=== PATIENT | female | born 1975 | race Caucasian/White ===

== ENCOUNTER 2025-05-22 17:48 | Emergency (ER) | payer OTHER, SELFPAY ==
--- OUTSIDE RECORDS SUMMARY | 2025-05-08 13:00 | XMS_ITS ---
Author Organization [facility] Address [address] [place] [address] Phone [phone] Care Team Providers Care Link Cutter Name Role Phone Bret Camara Primary Care Provider [phone] Kirsten Joseph APRN [phone] Allergies Allergen (clinical drug ingredient) Drug/Non Drug Allergy documented on EMR Reaction Allergy Type Onset Date Status codeine Codeine anaphylaxis Drug Allergy Activ e ketorolac Ketorolac anaphylaxis Drug Allergy Activ e REASON FOR VISIT [facility] Naltrxone/Vivitrol Medications Medication SIG (Take, Route, Frequency, Duration) Notes Start Date End Date Diagnosis (ICD Code) Status traZODone HCl 50 MG Tablet 1-2 tablets at bedtime as needed Orally Once a day; Duration: 7 days pt on unit-than ks! 5 Insomnia (ICD_10 - G47.00) Active ARIPiprazole 5 MG Tablet 1 tablet Orally Once a day; Duration: 7 days pt on unit-than ks! 5 Mood disorder (ICD_10 - F39) Active Sertraline HCl 25 MG Tablet 1 tablet Orally Once a day; Duration: 7 days pt on unit-than ks! 5 Mood disorder (ICD_10 - F39) Active Prazosin HCl 1 MG Capsule 1 capsule at bedtime Orally Once a day; Duration: 7 days pt on unit-than ks! 5 PTSD (post-traumatic stress disorder) (ICD_10 - F43.10) Active Baclofen 5 MG Tablet 1 tablet as needed at night Orally Once a day; Duration: 30 days 5 Neck pain on right side (ICD_10 - M54.2) Active Ondansetron HCl 4 MG Tablet 1 tablet Orally every 8 hours; Duration: 14 days 5 Nausea (ICD_10 - R11.0) Active Albuterol Sulfate HFA 108 (90 Base) MCG/ACT Aerosol Solution 1 puff as needed Inhalation every 4 hrs 5 COPD (chronic obstructive pulmonary disease) (ICD_10 - J44.9) Active Topiramate 25 MG Tablet 1 tablet Orally Once a day 5 Migraine (ICD_10 - G43.909) Active Docusate Sodium 100 MG Capsule 1 capsule as needed Orally Once a day; Duration: 30 days 5 Constipation (ICD_10 - K59.00) Active Triamcinolone Acetonide 0.1 % Lotion 1 application Externally Twice a day 5 Eczema of both hands (ICD_10 - L30.9) Active hydrOXYzine Pamoate 25 MG Capsule 1-2 capsules Orally every 4 hours as needed for anxiety, agitation, or inability to sleep. Do not give within 4 hours of diphenhydramine.; Duration: 30 days 5 Adult general medical examination (ICD_10 - Z00.00) Active Nicotine 14 MG/24HR Patch 24 Hour 1 patch to skin Transdermal Once a day, removing at bedtime; Duration: 14 days 5 Adult general medical examination (ICD_10 - Z00.00) Active Nicotine Polacrilex 4 MG Lozenge 1 lozenge as needed for nicotine cravings Mouth/Throat Up to once per hour (maximum of 15 lozenges per day); Duration: 7 days 5 Adult general medical examination (ICD_10 - Z00.00) Active Melatonin 5 MG Tablet 1 tablet at bedtime as needed Orally Once a day; Duration: 30 days 5 Adult general medical examination (ICD_10 - Z00.00) Active Multi Vitamin - Tablet 1 tablet Orally Once a day; Duration: 30 days 5 Adult general medical examination (ICD_10 - Z00.00) Active Vivitrol 380 MG Suspension Reconstituted as directed Intramuscular every 28 days; Duration: 28 days Methamphetamine use disorder, severe (ICD_10 - F15.20) Active Naltrexone HCl 50 MG Tablet 1/2 tablet Orally once; Duration: 1 days Methamphetamine use disorder, severe (ICD_10 - F15.20) Active Social History Sex Observation Social History Observation Description Sex Observation Female Vital Signs Vital Sign Value Appt Date Weight 223.4 lbs 05/08/2025 Height 68 in 05/08/2025 BMI 33.96 kg/m2 05/08/2025 Blood pressure systolic 120 mm Hg 05/08/20 Blood pressure diastolic 74 mm Hg 025 Heart Rate 81 /min 05/08/2025 Oximetry 98 % 05/08/2025 Respiratory Rate 16 /min 05/08/2025 Encounters Date Time Type Facility Location Provider Diagnosis 01:00 PM Office Visit [address] [place] [address] Kirsten Joseph Methamphetamine use disorder, severe F15.20 Assessments Encounter Date Diagnosis (ICD Code) Assessment Notes Treat ment Notes Section Notes 05/08/2025 Methamphetamine use disorder, severe (ICD-10 - F15.20) 05/08/2025 Other 05/08/25 01:00 PM, Sarwat Louis RN > Per Carmelo Joseph APRN's orders, supervised as pt. self-administered Naltrexone 25mg po. Instructed pt. on Naltrexone and Vivitrol per [employer] module handout. Instructed pt. on adverse side effects to report and common side effects. Gave pt. Vivitrol ID bracelet, necklace, and wallet card and explained what/why it is used. Pt. verbalized understanding of all of the above. Will monitor. 05/08/25 01:15 PM, Sarwat Louis RN > Pt. denies any adverse side effects from the Naltrexone at this time. Will continue to monitor. 05/08/25 01:30 PM, Sarwat Louis RN> Pt. continues to deny any adverse side effects to the Naltrexone at this time. Reported this to Carmelo Joseph APRN. Per orders, okay to administer IM Vivitrol. 05/08/25 01:45 PM, Sarwat Louis RN> Administered Vivitrol 380mg IM into Lt. gluteus. Pt. tolerated well. No questions/concerns at this time. Pt. given a reminder with walk-in clinic hours, phone numbers, and when pt.'s next Vivitrol is due. Pt. verbalized understanding. 05/08/25 02:00 PM, NURSE > Pt. denies any adverse side effects from Vivitrol injection given. Per Carmelo Joseph APRN pt. discharged back to [facility]. Plan Of Treatment Treatment Notes Assessment Notes Other 05/08/25 01:00 PM, Sarwat Louis RN > Per Carmelo Joseph APRN's orders, supervised as pt. self-administered Naltrexone 25mg po. Instructed pt. on Naltrexone and Vivitrol per [employer] module handout. Instructed pt. on adverse side effects to report and common side effects. Gave pt. Vivitrol ID bracelet, necklace, and wallet card and explained what/why it is used. Pt. verbalized understanding of all of the above. Will monitor. 05/08/25 01:15 PM, Sarwat Louis RN > Pt. denies any adverse side effects from the Naltrexone at this time. Will continue to monitor. 05/08/25 01:30 PM, Sarwat Louis RN> Pt. continues to deny any adverse side effects to the Naltrexone at this time. Reported this to Carmelo Joseph APRN. Per orders, carsonay to administer IM Vivitrol. 05/08/25 01:45 PM, Sarwat Louis RN> Administered Vivitrol 380mg IM into Lt. gluteus. Pt. tolerated well. No questions/concerns at this time. Pt. given a reminder with walk-in clinic hours, phone numbers, and when pt.'s next Vivitrol is due. Pt. verbalized understanding. 05/08/25 02:00 PM, NURSE > Pt. denies any adverse side effects from Vivitrol injection given. Per Carmelo Joseph APRN pt. discharged back to [facility]. Next Appt Details Provider Name:Destinee archer, 05/28/2025 10:00:00 AM, [address] [place] [address], [id number], Medications Administered Medication Instructions Date of Administration Dosage Diagnosis (ICD Code) Notes Vivitrol 05/08/2025 380 mg HeribertoTrudy felipe Pickard 05/08/2025 01:45 PM WASTE SPECIALIST >Given IM Lt Gluteus, tolerated well. [facility]# [id number]. Medical (General) History Medical History History ICD Code PTSD anxiety depression Surgical History Surgery Date(Month/Year) hysterectomy at age 23 Hospitalization History Reason Date(Month/Year) [facility], [facility] last month 03/2025 [facility] for detox 04/2025 Progress Notes * IRVINJEFFLeslieaDOB: 6 (49 yo F)Acc No.[id number]:05/08/2025 UNLOCKED PROGRESS NOTE Progress Note Patient: Nara LIM Provider: Polly Joseph, MSN, INVENTORY CONTROL SUPERVISOR, STATEMENT DISTRIBUTION CLERK-C :1975 A ge:49 Y S ex:Female Date:05/08/2025 Address:[address] [place] [address] Pcp:Bret Camara Check In:12:51 PM CSTCheck O ut:02:04 PM WASTE SPECIALIST Subjective: * Chief Complaints: * 1 . [facility] Naltrxone/Vivitrol. * Screening: * * Medical History: P TSD, Anxiety, Depression. * Surgical History: h ysterectomy at age 23 . * Hospitalization/Major Diagno stic Procedure: [facility] for detox 04/2025, [facility], end of last month 03/2025. * Medications: T aking Naltrexone HCl 50 MG Tablet 1/2 tablet Orally once , Taking Vivitrol 380 MG Suspension Reconstituted as directed Intramuscular every 28 days , Taking Nicotine Polacrilex 4 MG Lozenge 1 lozenge as needed for nicotine cravings Mouth/Throat Up to once per hour (maximum of 15 lozenges per day) , Taking Multi Vitamin - Tablet 1 tablet Orally Once a day , Taking Melatonin 5 MG Tablet 1 tablet at bedtime as needed Orally Once a day , Taking Nicotine 14 MG/24HR Patch 24 Hour 1 patch to skin Transdermal Once a day, removing at bedtime , Taking hydrOXYzine Pamoate 25 MG Capsule 1-2 capsules Orally every 4 hours as needed for anxiety, agitation, or inability to sleep. Do not give within 4 hours of diphenhydramine. , Taking Albuterol Sulfate HFA 108 (90 Base) MCG/ACT Aerosol Solution 1 puff as needed Inhalation every 4 hrs , Taking Ondansetron HCl 4 MG Tablet 1 tablet Orally every 8 hours , Taking Docusate Sodium 100 MG Capsule 1 capsule as needed Orally Once a day , Taking Topiramate 25 MG Tablet 1 tablet Orally Once a day , Taking Triamcinolone Acetonide 0.1 % Lotion 1 application Externally Twice a day , Taking Baclofen 5 MG Tablet 1 tablet as needed at night Orally Once a day , Taking Prazosin HCl 1 MG Capsule 1 capsule at bedtime Orally Once a day , Notes to Pharmacist: pt on unit-thanks!, Taking Sertraline HCl 25 MG Tablet 1 tablet Orally Once a day , Notes to Pharmacist: pt on unit-thanks!, Taking ARIPiprazole 5 MG Tablet 1 tablet Orally Once a day , Notes to Pharmacist: pt on unit-thanks!, Taking traZODone HCl 50 MG Tablet 1-2 tablets at bedtime as needed Orally Once a day , Notes to Pharmacist: pt on unit-thanks! * Allergies: K etorolac: anaphylaxis, Codeine: anaphylaxis. Objective: * Vitals: I patricia: cinthya, Wt:223.4, Ht: 68, BMI:33.96, BP:120/74, HR:81, Oxygen sat %:98, RR:16. Assessment: * Assessment: 1. M ethamphetamine use disorder, severe - F15.20 (Primary) Plan: * Treatment: * Therapeutic Injections: Vivitrol : 380 mg (Dose No:1) (Route: Intramuscular) given by CINTHYA Mccracken on left gluteus (Methamphetamine use disorder, severe) * Procedure Codes: [id number] THER/PROPH/DIAG INJ, SC/IM * * Electronic signature of Ivonne Joseph APRN, [id number] on 05/22/2025 at 10:01 PM WASTE SPECIALIST Sign off status: Pending * Provider: Polly Joseph, MSN, INVENTORY CONTROL SUPERVISOR, STATEMENT DISTRIBUTION CLERK-C Date: 07/09/2024 Generated for Ashok wheat/Barry/Lorenzasmcait on: 07/23/2024 10:01 PM WASTE SPECIALIST
--- NOTE | ~2025-05-22 | CT_ITS ---
EXAMINATION: CT abdomen pelvis w con DATE: 05/22/2025 19:39 INDICATION: Abdominal pain. Concern for cholecystitis. TECHNIQUE: Computed tomography (CT) of the abdomen and pelvis was performed with intravenous contrast. The dose-length product was 1265.54 mGy-cm. Automated exposure control and iterative reconstruction technique were employed. COMPARISON: None. FINDINGS: Lung bases unremarkable. Heart size normal. Scattered areas of nodular pleural thickening with small effusions. The liver, spleen, pancreas, adrenal glands and right kidney are unremarkable. There is a 2.2 cm intermediate density left renal mass measuring 59 Hounsfield units. Small hiatal hernia. Nonobstructive bowel gas pattern. No abnormal pelvic masses or fluid collections. No free air or free fluid. Gallbladder is present. No significant vascular abnormality. No lymphadenopathy. No focal lytic or blastic lesions. IMPRESSION: 1. Nodular pleural thickening with small effusions. In the absence of recent infection or inflammatory disease, findings are concerning for pleural malignancy including metastatic disease or mesothelioma. Correlation with prior imaging and clinical history is recommended. Consider further evaluation PET/CT scan. 2: Intermediate density left renal mass measuring 2.2 cm. Cannot exclude renal cell carcinoma. Correlation with MRI without and with contrast recommended. Reviewed, dictated and finalized at location O. ECT DRILLING ENGINEER IMPRESSION: 1. Nodular pleural thickening with small effusions. In the absence of recent in fection or inflammatory disease, findings are concerning for pleural malignancy including metastatic disease or mesothelioma. Correlation with prior imaging a nd clinical history is recommended. Consider further evaluation PET/CT scan. 2: Intermediate density left renal mass measuring 2.2 cm. Cannot exclude renal cell carcinoma. Correlation with MRI without and with contrast recommended.
[2025-05-22 17:51] VITALS: BP 113/76; PULSE 80; RESP 16; TEMP 36.8; O2SAT 99
--- NOTE | 2025-05-22 18:20 | ED_ITS ---
HPI - Abdominal Pain General Chief Complaint: Abdominal Pain Stated Complaint: UPPER ABD PAIN Time Seen by Provider: 05/22/25 17:56 History of Present Illness HPI narrative: 49-year-old female presenting with concerns for persistent abdominal pain over the last 3-4 days. Patient states the pain worsened today and was accompanied by vomiting and severe right upper quadrant abdominal pain after eating dinner. She is also reporting subjective fevers today. Denies diarrhea, chest pain/shortness breath, or urinary symptoms. Patient states her last bowel movement was normal yesterday. States that she does not have her appendix and has had a total hysterectomy but maintains her gallbladder. Related Data Allergies Allergy/AdvReac Type Severity Reaction Status Date / Time codeine Allergy Severe Swelling Verified 05/22/25 17:50 of Lip/Tongue/Throat ketorolac Allergy Severe Swelling Verified 05/22/25 17:50 of Lip/Tongue/Throat Review of Systems 2 Review of Systems: All systems reviewed & are unremarkable except as noted in HPI and below Exam 2 Narrative: GENERAL: Uncomfortable. HEAD: Normocephalic, atraumatic. EYES: PERRLA and EOMI. ENT: Nares clear, no rhinorrhea or epistaxis. Mucous membranes moist. Oropharynx without tonsillar hypertrophy exudate or other lesions. Bilateral TMs pearly cabrera non-bulging NECK: Supple. No adenopathy or masses. No carotid bruits or JVD CHEST: Clear to auscultation. No respiratory distress. No wheezes rales or rhonchi HEART: Regular rate and rhythm. No murmur heard. Normal peripheral pulses. ABDOMEN: Soft, nondistended, normal active bowel sounds. RUQ TTP. EXTREMITIES: Normal range of motion. No edema. SKIN: Warm, dry, no rash. NEURO: No focal deficits. Alert and oriented x3. PSYCH: Normal mood and affect Course Vital Signs Vital signs: Vital Signs Temperature 98.2 F 05/22/25 17:51 Pulse Rate 80 05/22/25 17:51 Respiratory Rate 16 05/22/25 17:51 Blood Pressure 113/76 05/22/25 17:51 Pulse Oximetry 99 05/22/25 17:51 Oxygen Delivery Room Air 05/22/25 17:51 Temperature 98.2 F 05/22/25 17:51 Pulse Rate 78 05/22/25 18:39 Respiratory Rate 23 H 05/22/25 18:39 Blood Pressure 145/64 H 05/22/25 18:39 Pulse Oximetry 98 05/22/25 18:39 Oxygen Delivery Room Air 05/22/25 17:51 [facility] Narrative Medical decision making narrative: 49-year-old female presenting with concerns for persistent abdominal pain over the last 3-4 days. Patient states the pain worsened today and was accompanied by vomiting and severe right upper quadrant abdominal pain after eating dinner. She is also reporting subjective fevers today. Denies diarrhea, chest pain/shortness breath, or urinary symptoms. Patient states her last bowel movement was normal yesterday. States that she does not have her appendix and has had a total hysterectomy but maintains her gallbladder. Upon my initial assessment patient appears uncomfortable but nontoxic with stable vitals. Labs are unremarkable. Advised improving hydration. Imaging demonstrates nodular pleural thickening with small effusions. In the absence of recent infection or inflammatory disease, findings are concerning for pleural malignancy including metastatic disease or mesothelioma. Correlation with prior imaging and clinical history is recommended. Consider further evaluation PET/CT scan. Intermediate density left renal mass measuring 2.2 cm. Cannot exclude renal cell carcinoma. Correlation with MRI without and with contrast recommended. Discussed these findings thoroughly with the patient and she verbalized understanding for the need for close follow-up. Administered Tylenol and Zofran which improved patient's symptoms. Differential diagnosis and treatment plan were discussed with the patient. Patient agrees with discussion and after shared medical decision making agrees with plan of care. All questions were answered to the patient's satisfaction. The patient is appropriate for outpatient treatment and follow-up. Given reasons to return. Differential Diagnosis Differential Diagnosis: Differential diagnostic considerations for acute abdominal pain include surgical abdominal etiology, ischemic bowel, inflammatory bowel disease, gastritis, PUD, gastroenteritis, cardiac etiology, appendicitis, diverticulitis, bowel obstruction, kidney stone, pyelonephritis, abdominal aortic aneurysm, pancreatitis, constipation, endometriosis. Lab Data [facility] Lab Attestation statement: I personally reviewed the patient's lab results. 05/22/25 18:41 05/22/25 18:41 Labs: Lab Results 05/22/25 Range/Units 18:41 WBC 9.1 (4.5-10.0) K/mm3 RBC 4.31 (4.2-5.4) M/mm3 Hgb 13.5 (12.0-15.0) g/dL Hct 40.0 (37.0-47.0) % MCV 92.8 (80-100) fl MCH 31.3 (26-34) pg MCHC 33.8 (32-36) g/dl RDW 12.5 (11.5-14.5) % Plt Count 318 (150-375) k/mm3 MPV 10.1 (7.4-10.4) fl Immature Gran % (Auto) 0.3 (0-0.5) % Neut % (Auto) 62.0 (45.5-73.1) % Lymph % (Auto) 26.4 (18.3-44.2) % [place] % (Auto) 7.1 (2.6-8.5) % Eos % (Auto) 3.2 (0-4.4) % Baso % (Auto) 1.0 (0.2-1.2) % Lymph # (Auto) 2.41 (0.9-3.2) K/mm3 [place] # (Auto) 0.7 H (0.1-0.6) K/mm3 Eos # (Auto) 0.3 (0-0.3) K/mm3 Baso # (Auto) 0.1 (0.0-0.1) K/mm3 Abs Immat Gran (auto) 0.03 (0.00-0.031) K/mm3 Absolute Neuts (auto) 5.7 (1.3-6.7) K/mm3 Absolute Nucleated RBC 0.000 (0.0-0.012) K/mm3 Nucleated RBC % 0.0 (0.0-0.2) % PT 12.5 (11.1-14.7) Seconds INR 0.9 APTT 28.0 (22.3-36.8) Seconds Sodium 139 (137-145) mmol/L Potassium 3.9 (3.4-5.0) mmol/L Chloride 106 (98-107) mmol/L Carbon Dioxide 22 (22-30) mmol/L Anion Gap 11 (4-12) mmol/L BUN 13 (7-17) mg/dL Creatinine 1.03 H (0.7-1.0) mg/dL Estim Creat Clear Calc 74 ml/min Estimated GFR 57 L (59 - ) Glucose 114 H (65-110) mg/dL Calcium 9.6 (8.4-10.2) mg/dL Total Bilirubin 0.4 (0.2-1.3) mg/dL AST 34 (14-36) U/L ALT 36 H (6-35) U/L Alkaline Phosphatase 75 (38-126) U/L Total Protein 7.2 (6.3-8.2) g/dL Albumin 4.2 (3.5-5.1) g/dL Lipase 77 (23-300) U/L Urine Color Yellow (Yellow) Urine Appearance Clear (Clear) Urine pH 5.5 (5.0-9.0) Ur Specific [place] 1.005 (1.001-1.035) Urine Protein Negative (Negative) mg/dL Urine Glucose (UA) Negative (Negative) mg/dL Urine Ketones Negative (Negative) mg/dL Ur Blood (Man) Negative (Negative) Urine Nitrate Negative (Negative) Urine Bilirubin Negative (Negative) Urine Urobilinogen 0.2 (<2.0) mg/dL Leukocyte Esterase Rfl Trace H (Negative) HERSON/UL Urine RBC 0-2 (0-2) /hpf Urine WBC 0-5 (0-3) /hpf Ur Squamous Epith Cells Occasional (Few) /hpf Urine Bacteria None seen /hpf Urine Casts 0-2 Imaging Data Attestation: I personally reviewed and interpreted this imaging study as follows: Radiologist's impression: ITS Impressions Abdomen/Pelvis CT 05/22/25 20:03 IMPRESSION: 1. Nodular pleural thickening with small effusions. In the absence of recent infection or inflammatory disease, findings are concerning for pleural malignancy including metastatic disease or mesothelioma. Correlation with prior imaging and clinical history is recommended. Consider further evaluation PET/CT scan. 2: Intermediate density left renal mass measuring 2.2 cm. Cannot exclude renal cell carcinoma. Correlation with MRI without and with contrast recommended. Discharge Plan Discharge Clinical Impression: Abdominal pain Patient Disposition: Home Condition: Stable Instructions: Antibiotic Form, Abdominal Pain (ED) Additional Instructions: Your imaging results included the followin. Nodular pleural thickening with small effusions. In the absence of recent infection or inflammatory disease, findings are concerning for pleural malignancy including metastatic disease or mesothelioma. Correlation with prior imaging and clinical history is recommended. Consider further evaluation PET/CT scan. 2: Intermediate density left renal mass measuring 2.2 cm. Cannot exclude renal cell carcinoma. Correlation with MRI without and with contrast recommended. Please follow-up closely with your primary care provider for further workup. Take anti-inflammatories (Aleve, Ibuprofen, Naproxen, etc) and Tylenol as needed for pain. Take anti-nausea medicine as needed. Return to the emergency department if you experience fever, chest pain, shortness of breath, abdominal pain with nausea and vomiting, weakness, numbness/tingling, or any other symptoms that are concerning to you. Patient Language: Finnish Prescriptions: New ondansetron 4 mg tablet,disintegrating 4 mg PO Q6H PRN (Reason: nausea and vomiting) Qty: 14 0RF Follow-up/Referrals: Noble,Bret Rhodes, ORGANIC PREPARATION ANALYST [Primary Care Provider, Unknown]
[2025-05-22 18:39] VITALS: BP 145/64; PULSE 78; RESP 23; O2SAT 98
[2025-05-22 18:48] LABS: Hematocrit 40.0 % (37.0-47.0); Hemoglobin 13.5 g/dL (12.0-15.0); Immature Granulocyte Percent A 0.3 % (0-0.5); Lymphocytes Absolute Auto 2.41 K/mm3 (0.9-3.2); Mean Corpuscular HGB Conc 33.8 g/dl (32-36); Mean Corpuscular Hemoglobin 31.3 pg (26-34); Mean Corpuscular Volume 92.8 fl (80-100); Nucleated Red Blood Cells Absolute Auto 0.000 K/mm3 (0.0-0.012); Nucleated Red Blood Cells Perc 0.0 % (0.0-0.2); Platelet Count Result 318 k/mm3 (150-375); Red Blood Count 4.31 M/mm3 (4.2-5.4); White Blood Count 9.1 K/mm3 (4.5-10.0)
[2025-05-22 19:02] LABS: Alanine Aminotransferase 36 U/L (6-35); Albumin Level 4.2 g/dL (3.5-5.1); Alkaline Phosphatase 75 U/L (38-126); Anion Gap 11 mmol/L (4-12); Aspartate Amino Transferase 34 U/L (14-36); Bilirubin,Total 0.4 mg/dL (0.2-1.3); Blood Urea Nitrogen 13 mg/dL (7-17); Calcium 9.6 mg/dL (8.4-10.2); Carbon Dioxide 22 mmol/L (22-30); Chloride 106 mmol/L (98-107); Estimated CRCL calculation 74 ml/min; Estimated Glomerular Filt Rate 57; Glucose 114 mg/dL (65-110); Lipase 77 U/L (23-300); Potassium 3.9 mmol/L (3.4-5.0); Sodium 139 mmol/L (137-145); Total Protein 7.2 g/dL (6.3-8.2)
[2025-05-22 19:03] LABS: INR 0.9; Prothrombin Time 12.5 Seconds (11.1-14.7)
[2025-05-22 19:04] LABS: Partial Thromboplastin Time 28.0 Seconds (22.3-36.8)
--- NOTE | 2025-05-22 19:22 | PC.NURSE ---
Pt. states she had a hysterectomy so a bedside test is not needed.CT notified.
[2025-05-22 19:31] LABS: Add Urine Microscopic? YES; Appearance Urine Clear (Clear); Glucose Urine UA Negative (Negative); Leukocyte Esterase Ur Trace LEU/UL (Negative); Nitrate Urine Negative (Negative); Non Pathogenic Casts 0-2; Specific Grav Ur 1.005 (1.001-1.035)
[2025-05-22] MEDS: ACETAMINOPHEN 500 MG TABLET 1000 MG PO (20:18)
[2025-05-22] MEDS: ONDANSETRON HCL ODT 4 MG TABLET PO (20:19)
--- OUTSIDE RECORDS SUMMARY | 2025-05-22 22:01 | XMS_ITS | Patient Health Record ---
Author Organization [facility] Address [address] [place] [address] Phone [phone] Care Team Providers Care Recordist Name Role Phone Hoa Bret Primary Care Provider [phone] Kirsten Joseph APRN Unavailable Destinee Lin Unavailable Shobha Seay Unavailable [phone] Allergies Allergen (clinical drug ingredient) Drug/Non Drug Allergy documented on EMR Reaction Allergy Type Onset Date Status codeine Codeine anaphylaxis Drug Allergy Activ e ketorolac Ketorolac anaphylaxis Drug Allergy Activ e Results Component Value Reference Range Flag Notes CBC With Differential/Platel et* Order date: 05/02/2025 Reviewed date:05/13/2025 12:49:43 PM Interpretation: Performing Lab:[facility], [address] [facility], Phone - [phone], Director - PhDRicchisondrai Notes/Report: WBC 9.8 3.4-10.8 x10E3/uL RBC 4.64 3.77-5.28 x10E6/uL Hemoglobin 14.9 11.1-15.9 g/dL Hematocrit 45.3 34.0-46.6 % MCV 98 79-97 fL H MCH 32.1 26.6-33.0 pg MCHC 32.9 31.5-35.7 g/dL RDW 12.5 11.7-15.4 % Platelets 279 150-450 x10E3/uL Neutrophils 71 Not Estab. % Lymphs 19 Not Estab. % Monocytes 6 Not Estab. % Eos 3 Not Estab. % Basos 1 Not Estab. % Neutrophils (Absolute) 6.9 1.4-7.0 x10E3/uL Lymphs (Absolute) 1.9 0.7-3.1 x10E3/uL Monocytes(Absolute) 0.6 0.1-0.9 x10E3/uL Eos (Absolute) 0.3 0.0-0.4 x10E3/uL Baso (Absolute) 0.1 0.0-0.2 x10E3/uL Immature Granulocytes 0 Not Estab. % Immature Grans (Abs) 0.0 0.0-0.1 x10E3/uL 14 Panel Urine Drug Screen Order date: 05/02/2025 Reviewed date:05/13/2025 12:49:43 PM Interpretation: Performing Lab: Notes/Report: THC neg JOSÉ LUIS neg MOP (OPI) neg AMP POS MET POS BAR POS BZO POS MDMA neg MTD neg OXY neg PCP neg BUP neg TCA neg FTY neg Lipid Panel With LDL/HDL Rat io Order date: 05/06/2025 Reviewed date:05/19/2025 03:35:12 PM Interpretation: Performing Lab:[facility] [place], [address] [facility], Phone - [phone], Director - [place] Notes/Report: Cholesterol, Total 253 100-199 mg/dL H Triglycerides 520 0-149 mg/dL H HDL Cholesterol 37 >39 mg/dL L VLDL Cholesterol Vikas 93 5-40 mg/dL H LDL Chol Calc (NIH) 123 0-99 mg/dL H LDL/HDL Ratio 3.3 0.0-3.2 ratio H LDL/HDL Ratio Men Women 1/2 Avg.Risk 1.0 1.5 Avg.Risk 3.6 3.2 2X Avg.Risk 6.2 5.0 3X Avg.Risk 8.0 6.1 TSH+Free T4 Order date: 05/06/2025 Reviewed date:05/19/2025 03:35:13 PM Interpretation: Performing Lab:[facility] [place], [address] [facility], [place], Phone - [phone], Director - [place] Notes/Report: TSH-ICMA 2.9 Reference Range: Non- Adult 0.450-4.500 First Trimester 0.100-4.000 Second Trimester 0.200-4.000 Third Trimester 0.300-4.500 Free T4 by Dialysis/Blunger 1.1 This test was developed and its performance characteristics determined by [facility]. It has not been cleared or approved by the Food and Drug Administration. Reference Range: Pubertal Children and Adults: 0.8 - 1.7 Hemoglobin A1c CLIA Waived Order date: 05/06/2025 Reviewed date:05/13/2025 12:49:43 PM Interpretation: Performing Lab: Notes/Report: Hemoglobin A1c 5.3 4.0 - 6.4 % CMP 14 Comprehensive Metabol ic Panel* Order date: 05/07/2025 Reviewed date:05/15/2025 11:13:39 AM Interpretation: Performing [facility], [address] [facility], Phone - [phone], Director - [facility] Notes/Report: Glucose 112 70-99 mg/dL H BUN 13 6-24 mg/dL Creatinine 0.90 0.57-1.00 mg/dL eGFR 78 >59 mL/min/1.73 BUN/Creatinine Ratio 14 9-23 Sodium 141 134-144 mmol/L Potassium 4.2 3.5-5.2 mmol/L Chloride 108 96-106 mmol/L H Carbon Dioxide, Total 20 20-29 mmol/L Calcium 9.1 8.7-10.2 mg/dL Protein, Total 6.0 6.0-8.5 g/dL Albumin 4.1 3.9-4.9 g/dL Globulin, Total 1.9 1.5-4.5 g/dL Bilirubin, Total 0.2 0.0-1.2 mg/dL Alkaline Phosphatase 86 41-116 IU/L AST (SGOT) 23 0-40 IU/L ALT (SGPT) 88 0-32 IU/L H Flu SARS-CoV-2 Combo Test Order date: 05/13/2025 Reviewed date:05/13/2025 12:49:43 PM Interpretation: Performing Lab: Notes/Report: Influenza A neg Influenza B neg SARS-CoV-2 neg CMP 14 Comprehensive Metabol ic Panel* Order date: 05/02/2025 Reviewed date:05/13/2025 12:49:43 PM Interpretation: Performing Lab:[facility], [address] [facility], Phone - [phone], Director - [place] Notes/Report: Glucose TNP Test not performed. Serum was in contact with cells when received which will make the result inaccurate. BUN 14 6-24 mg/dL Creatinine 1.10 0.57-1.00 mg/dL H eGFR 62 >59 mL/min/1.73 BUN/Creatinine Ratio 13 9-23 Sodium 140 134-144 mmol/L Potassium TNP Test not performed. Serum was in contact with cells when received which will make the result inaccurate. Chloride 103 96-106 mmol/L Carbon Dioxide, Total 21 20-29 mmol/L Calcium 9.7 8.7-10.2 mg/dL Protein, Total 6.5 6.0-8.5 g/dL Albumin 4.2 3.9-4.9 g/dL Globulin, Total 2.3 1.5-4.5 g/dL Bilirubin, Total <0.2 0.0-1.2 mg/dL Alkaline Phosphatase 93 41-116 IU/L AST (SGOT) 91 0-40 IU/L H ALT (SGPT) 101 0-32 IU/L H QuantiFERON-TB Gold Plus (18 [id number]) Order date: 05/02/2025 Reviewed date:05/13/2025 12:49:43 PM Interpretation: Performing Lab:[facility], [address] [facility], Phone - [phone], [facility] Notes/Report: QuantiFERON Incubation Incubation performed. QuantiFERON-TB Gold Plus Negative Negative No response to M tuberculosis antigens detected. Infection with M tuberculosis is unlikely, but high risk individuals should be considered for additional testing (ATS/IDSA/CDC Clinical Practice Guidelines, 2017). The reference range is an Antigen minus Nil result of <0.35 IU/mL. Chemiluminescence immunoassay methodology QuantiFERON Criteria QuantiFERON-TB Gold Plus is a qualitative indirect test for M tuberculosis infection (including disease) and is intended for use in conjunction with risk assessment, radiography, and other medical and diagnostic evaluations. The QuantiFERON-TB Gold Plus result is determined by subtracting the Nil value from either TB antigen (Ag) value. The Mitogen tube serves as a control for the test. QuantiFERON TB1 Ag Value 0.03 QuantiFERON TB2 Ag Value 0.02 QuantiFERON Nil Value 0.04 QuantiFERON Mitogen Value >10.00 Test, Urine Order date: 05/02/2025 Reviewed date:05/13/2025 12:49:43 PM Interpretation: Performing Lab: Notes/Report: Test, Urine NEG Negative - Negative Breathalyzer Order date: 05/02/2025 Reviewed date:05/13/2025 12:49:43 PM Interpretation: Performing Lab: Notes/Report: TITA 0.000 Reason For Referral No Information Medications Medication SIG (Take, Route, Frequency, Duration) Notes Start Date End Date Diagnosis (ICD Code) Status Prazosin HCl 1 MG Capsule 1 capsule at bedtime Orally Once a day; Duration: 14 days pt on unit-than ks! PTSD (post-traumatic stress disorder) (ICD_10 - F43.10) Active hydrOXYzine Pamoate 25 mg Capsule TAKE 1 TO 2 CAPSULES BY MOUTH EVERY FOUR HOURS NEEDED FOR ANXIETY, AGITATION OR INABILITY TO SLEEP; Duration: 15 Adult general medical examination (ICD_10 - Z00.00) Active Sertraline HCl 25 MG Tablet 1 tablet Orally Once a day; Duration: 14 days pt on unit-than ks! Mood disorder (ICD_10 - F39) Active Melatonin 5 MG Tablet 1 tablet at bedtime as needed Orally Once a day; Duration: 30 days 5 Adult general medical examination (ICD_10 - Z00.00) Active ARIPiprazole 5 MG Tablet 1 tablet Orally Once a day; Duration: 14 days pt on unit-than ks! Mood disorder (ICD_10 - F39) Active Nicotine 14 MG/24HR Patch 24 Hour 1 patch to skin Transdermal Once a day, removing at bedtime; Duration: 14 days 5 Adult general medical examination (ICD_10 - Z00.00) Active Topiramate 25 MG Tablet 1 tablet Orally Once a day; Duration: 30 days 5 Migraine (ICD_10 - G43.909) Active Multi Vitamin - Tablet 1 tablet Orally Once a day; Duration: 30 days 5 Adult general medical examination (ICD_10 - Z00.00) Active Atorvastatin Calcium 40 MG Tablet 1 tablet at bedtime Orally Once a day; Duration: 30 days 5 Hyperlipidemia (ICD_10 - E78.5) Active Triamcinolone Acetonide 0.1 % Lotion 1 application Externally Twice a day 5 Eczema of both hands (ICD_10 - L30.9) Active Naltrexone HCl 50 MG Tablet 1/2 tablet Orally once; Duration: 1 days 5 Methamphetamine use disorder, severe (ICD_10 - F15.20) Active Baclofen 5 MG Tablet 1 tablet as needed at night Orally Once a day; Duration: 30 days 5 Neck pain on right side (ICD_10 - M54.2) Active Vivitrol 380 MG Suspension Reconstituted as directed Intramuscular every 28 days; Duration: 28 days 5 Methamphetamine use disorder, severe (ICD_10 - F15.20) Active Nicotine Polacrilex 4 MG Lozenge 1 lozenge as needed for nicotine cravings Mouth/Throat Up to once per hour (maximum of 15 lozenges per day); Duration: 7 days 5 Adult general medical examination (ICD_10 - Z00.00) Active traZODone HCl 150 MG Tablet 1 tablet at bedtime Orally Once a day; Duration: 14 days As needed pt on unit-than ks! Insomnia (ICD_10 - G47.00) Active Fluticasone Furoate 27.5 MCG/SPRAY Suspension 2 sprays (1 spray in each nostril) Nasally Once a day; Duration: 30 days 5 Maxillary sinusitis, unspecified chronicity (ICD_10 - J32.0) Active Albuterol Sulfate HFA 108 (90 Base) MCG/ACT Aerosol Solution 1 puff as needed Inhalation every 4 hrs 5 COPD (chronic obstructive pulmonary disease) (ICD_10 - J44.9) Active Saline Magness 0.65 % Solution 2 sprays into each nostril Nasally 3 times a day As needed, wait 1 hour after flonase to take at minimum 5 Maxillary sinusitis, unspecified chronicity (ICD_10 - J32.0) Active Ondansetron HCl 4 MG Tablet 1 tablet Orally every 8 hours; Duration: 14 days 5 Nausea (ICD_10 - R11.0) Active Docusate Sodium 100 MG Capsule 1 capsule as needed Orally Once a day; Duration: 30 days 5 Constipation (ICD_10 - K59.00) Active Social History Tobacco Use: Social History Observation Description Date Details (start date - stop date) Current Smoker NA - NA Sex Observation Social History Observation Description Sex Observation Female SDOH Assessments Date Tool Assessment Assessment LOINC Value Assessment Notes Goals Interventions Nadeem BERUMEN (LOINC: 80942-7 ) Total Score: 13 Please specify Case Management Assessment First Visit Date Completed/Updated: 05/02/2025 What is your current housing situation? 91317-0 I have housing (LI66411-8) Are you worried about losing your housing? 40525-2 Yes (LA33-6) What is the highest level of school that you have finished? 36005-1 Less than a high school degree (LV06179-8) What is your current work situation? 62740-9 Unemployed and seeking work (YQ26907-7) In the past year, have you o r any family members you live with been unable to get any of the following when it was really needed? Check all that apply 92815-9 Utilities (QZ43024-0) Has lack of transportation k ept you from medical appointments, meetings, work or from getting things needed for daily living? 13653-0 Yes, it has kept me from medical appointments or from getting my medications (QB95042-9) Yes, it has kept me from non-medical meetings, appointments, work, or getting things needed for daily living (DS86643-5) How often do you see or talk to people that you care about and feel close to? (For example: talking to friends on the phone, visiting friends or family, going to moravian or club meetings) 03470-5 Less than once a week (BP71650-0) How stressed are you? Stress is when someone feels tense, nervous, anxious, or can\t sleep at night because their mind is troubled 37060-5 Very much (KD22124-5) In the past year have you sp ent more than 2 nights in a row in a intermediate, fdc, snf center, or juvenile correctional facility? 70678-0 No (LA32-8) Do you feel physically and e motionally safe where you currently live? 01404-7 Yes (LA33-6) In the past year, have you b een afraid of your partner or ex-partner? 35506-8 No (LA32-8) Are you a refugee? I choose not to answer this question What country are you from? I choose not to answer this question PRAPARE Score: 13 Enabling Services Provided? Yes Social History Social Determinants Social Info Question Answer Notes PRAPARE Date Completed/Updated: 05/02/2025 What is your current housing situation? I have h ousing Are you worried about losing your housing? Yes What is the highest level of school that you have finished? Less than a high school degree What is your current work situation? Unemployed and seeking work In the past year, have you o r any family members you live with been unable to get any of the following when it was really needed? Check all that apply Utilities Has lack of transportation k ept you from medical appointments, meetings, work or from getting things needed for daily living? Yes, it has kept me from medical appointments or from getting my medications,Yes, it has kept me from non-medical meetings, appointments, work, or getting things needed for daily living How often do you see or talk to people that you care about and feel close to? (For example: talking to friends on the phone, visiting friends or family, going to moravian or club meetings) Less than once a week How stressed are you? Stress is when someone feels tense, nervous, anxious, or can\t sleep at night because their mind is troubled Very much In the past year have you sp ent more than 2 nights in a row in a intermediate, fdc, snf center, or juvenile correctional facility? No Are you a refugee? I choose not to answer this q uestion What country are you from? I choose not to answe r this question Do you feel physically and e motionally safe where you currently live? Yes In the past year, have you b een afraid of your partner or ex-partner? No PRAPARE Score: 13 Enabling Services Provided? Yes Please specify Case Management Assessment First Visit Miscellaneous Social Info Question Answer Notes Method of learning: Preferred method of learning: Demo nstration Primary Social History Social Info Question Answer Notes Living Arrangement Living Arrangement: Independent Purvi ing Is this a supportive environment? Yes Single Question Alcohol Screening How ma ny times in the past year have you had (4 for women, or 5 for men) or more drinks in a day? 0 Employment Status Employment Status: Unemployed Illicit Substance Usage Illicit Substance Usage: Yes Substance Used: Methamphetamine Frequency Methamphetamine is used: daily Alcohol Use Alcohol Use Frequency: Never Tobacco Use: Social Info Question Answer Notes Tobacco Control (Standard) Tobacco use: Current smoker How often do you smoke cigarettes? Every day How many cigarettes a day do you smoke? 11-20 Problems Problem Type SNOMED Code ICD Code Dates Problem Status W/U Status Risk Notes Problem Hyperlipidemia (58718999) Hyperlipidemia (E78.5) Added On: 5 Active confirmed Problem Insomnia (446471399) Insomnia (G47.00) Added On: 5 Active confirmed Problem Mood disorder (13546081) Mood disorder (F39) Added On: 5 Active confirmed The differential diagnosis includes but is not limited to: Bipolar 1 vs. 2, CLARISSA appropriately due to patient's long history of MANJULA starting at age 11 Problem Substance abuse (8786272679) Substance abuse (F19.10) Added On: 5 Active confirmed Problem Posttraumatic stress disorder (73196935) PTSD (post-traumatic stress disorder) (F43.10) Added On: 5 Active confirmed Problem COPD - Chronic obstructive pulmonary disease (19031949) COPD (chronic obstructive pulmonary disease) (J44.9) Added On: 5 Active confirmed Problem Migraine (55079892) Migraine (G43.909) Added On: 5 Active confirmed Problem Constipation (13828437) Constipation (K59.00) Added On: 5 Active confirmed Problem Overweight (594819329) Over weight (E66.3) Added On: 5 Active confirmed Problem Neck pain (13558644) Neck pain on right side (M54.2) Added On: 5 Active confirmed Problem Mental health disorder (67549984) Mental health disorder (F99) Added On: 5 Active confirmed Problem Physical examination, complete (07266183) Adult general medical examination (Z00.00) Added On: 5 Active confirmed Problem Obsessive-compul sive disorder (145319872) OCD (obsessive compulsive disorder) (F42.9) Added On: 5 Active confirmed Problem Chronic maxillary sinusitis (01014225) Maxillary sinusitis, unspecified chronicity (J32.0) Added On: 5 Active confirmed Problem Stimulant dependence (381917670) Methamphetamine use disorder, severe (F15.20) Added On: 5 Active confirmed Problem Obese class I (542452966246003 ) BMI 33.0-33.9,adult (Z68.33) Added On: 5 Active confirmed Vital Signs Vital Sign Value Notes Appt Date Heart Rate 92 /min 05/13/2025 Temperature 98.7 degrees Fahrenheit 04/28 Respiratory Rate 20 /min 05/13/2025 Oximetry 100 % 05/13/2025 Blood pressure diastolic 78 mm Hg Height 68 in 05/13/2025 Blood pressure systolic 118 mm Hg 04/28 Weight 224.2 lbs 05/13/2025 BMI 34.09 kg/m2 05/13/2025 Encounters Date Time Type Facility Location Provider Diagnosis 05/08/20 01:00 PM Office Visit [facility] [place] [address] Kirsten Joseph Methamphetamine use disorder, severe F15.20 05/13/20 25 10:00 AM Office Visit [facility] [place] [address] Bret Camara 05/02/20 11:40 AM [facility] Visit[facility] Level [facility] (09643) [facility] [place] [address] Bret Camara Adult general medical examination Z00.00 ; Methamphetamine use disorder, severe F15.20 ; COPD (chronic obstructive pulmonary disease) J44.9 ; Nausea R11.0 ; Constipation K59.00 ; Eczema of both hands L30.9 and Migraine G43.909 05/02/20 25 12:40 PM Office Visit [facility] [place] [address] Shobha Seay Substance abuse F19.10 and Mental health disorder F99 05/06/20 25 02:20 PM Office Visit, Est Pt., Level 4 (38571) [facility] [address] [place] [address] Bret Camara Migraine G43.909 ; Adult general medical examination Z00.00 ; Eczema of both hands L30.9 ; Breast cancer screening Z12.31 ; Colon cancer screening Z12.11 ; Encounter for screening for lipoid disorders Z13.220 ; Screening for thyroid disorder Z13.29 ; Diabetes mellitus screening Z13.1 ; Over weight E66.3 ; BMI 33.0-33.9,adult Z68.33 and Neck pain on right side M54.2 05/07/20 25 11:00 AM Telehealth Office Visit, New Pt., Level 3 (15662) [address] [address] Destinee Riley Mood disorder F39 ; PTSD (post-traumatic stress disorder) F43.10 ; OCD (obsessive compulsive disorder) F42.9 and Insomnia G47.00 05/08/20 25 11:20 AM Office Visit, Est Pt., Level 3 (13137) [place] [address] [place] [address] Kirsten Joseph Methamphetamine use disorder, severe F15.20 05/13/20 25 10:00 AM Office Visit, Est Pt., Level 4 (98005) [place] [address] [place] [address] Bret Camara Cough R05.9 ; URI (upper respiratory infection) J06.9 ; Maxillary sinusitis, unspecified chronicity J32.0 ; Migraine G43.909 and Over weight E66.3 05/14/20 25 01:00 PM Telehealth Office Visit, Est Pt., Level 3 ([address]25) [address] [address] Destinee Riley Mood disorder F39 ; PTSD (post-traumatic stress disorder) F43.10 ; OCD (obsessive compulsive disorder) F42.9 and Insomnia G47.00 05/07/20 25 07:45 AM Telephone Encounter [place] [address] [place] [address] Bret Camara Abnormal blood chemistry R79.9 05/19/20 08:11 AM [facility] [place] [address] Bret Camara Hyperlipidemia E78.5 Assessments Encounter Date Diagnosis (ICD Code) Assessment Notes Treat ment Notes Section Notes 05/19/2025 Hyperlipidemia (ICD-10 - E78.5) 05/02/2025 Adult general medical examination (ICD-10 - Z00.00) Admit to the Mental Health/Crisis Residential Unit and initiate standing/protocol orders: The following PRN medications may be self-administered by patients under the supervision of approved staff or administered by nursing staff: Ibuprofen 200mg, 2-4 tablets by mouth (with food) every 6 hours as needed for pain (unless on lithium). (NOTE: Ibuprofen and acetaminophen may be given together, but alternating is recommended for continuous pain relief. Guaifenesin 400 mg, 1 tablet by mouth every four hours as needed for cough and chest congestion (take with large glass of water). Loratadine 10 mg, 1 tablet by mouth daily as needed for allergies, watery itchy eyes, or sinus drainage. Throat Lozenges, up to 4 tablets by mouth every three to four hours as needed for sore throat. Antacid tablets, 1-2 tablets by mouth every one to two hours as needed for indigestion or heart burn. If the client prefers liquid, could use: Liquid Antacid : 1 ounce by mouth up to four times daily as needed for indigestion or heartburn Omeprazole 20mg, 1 capsule by mouth once daily for 14 days for frequent heartburn (frequent heartburn is more than 2 episodes per week). Do not exceed 14 days. Do not give to client already taking a proton-pump inhibitor: esomeprazole (Nexium), lansoprazole (Prevacid), pantoprazole (Protonix), rabeprazole (Aciphex), dexlansoprazole (Dexilant) Zofran ODT disintegrating (under the tongue) 4 mg, 1-2 tablets every 8 hours as needed for nausea/vomiting. Milk of Magnesia (MOM): 1 ounce (30 milliliters) by mouth every day as needed for constipation. OR Miralax: Stir and fully dissolve 17 grams (1 packet or 1 capful to measured line) in any 4 to 8 ounces of beverage then drink once daily for constipation. Do not use for more than 7 days. OR Docusate 100 mg, 1 capsule twice daily as needed for constipation Hydrocortisone 1% Cream, apply topically (to the skin) to the affected area up to three times daily as needed for itching or inflammation (avoid eyes and genitals). 2% Antifungal Cream, apply topically (to the skin) as directed as needed to affected areas for athlete's foot or jock itch. Triple Antibiotic Ointment, apply topically (to the skin) up to three times daily as needed for minor cuts and scrapes. Carmex or Chapstick, apply topically (to the skin) as needed for chapped lips and skin. Orajel, apply to affected areas as needed for mouth or tooth pain. Lubricating Eye Drops, instill 1-2 drops to the affected eye(s) as needed for dry/irritated eye(s). Hemorrhoid medications, apply to affected area according to directions as needed for hemorrhoid discomfort and itch. Nix (Permethrin 1%) cream 2 ounces, apply topically (to the skin) as directed as needed for head lice. Sunscreen 30 SPF, Apply to exposed skin prior to exposure to sun. The following PRN medications must be approved by nursing staff before self-administration by patients: Diphenhydramine 25 mg, 2 tablets by mouth every 4 hours as needed for allergic reaction or itchy rash. Caution: Do not use hydroxyzine within 4 hours of diphenhydramine and vice versa. Loperamide 2 mg capsules, may give two capsules by mouth for the initial dose, followed by one capsule up to 3 times a day as needed for diarrhea. Acetaminophen 500 mg, 1 - 2 tablets by mouth every six hours as needed for pain. (NOTE: Ibuprofen and acetaminophen may be given together, but alternating is recommended for continuous pain relief). Oxygen-May administer oxygen 2L/min via nasal cannula if O2 saturation is less than 92%, AND client complains of shortness of breath. Target O2 saturation is 94-98%. Caution: Remember too much oxygen can be detrimental to a client with COPD. Oxygen is a drug and should be delivered by trained staff only. Nurses may remove superficial splinters and sutures from skin lacerations. May apply gauze or bandages to any weeping wounds. Contact nursing if there is pus, a foul odor, increased pain/redness/swelling , or if soaking through bandages. 05/07/2025 Abnormal blood chemistry (ICD-10 - R79.9) 05/02/2025 Mental health disorder (ICD-10 - F99) 05/06/2025 Adult general medical examination (ICD-10 - Z00.00) - The patient is due for labs today, will call with results. - The patient is not up to date on preventative screenings. 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 - The patient is UTD on vaccines, recommended annual flu vaccines and COVID boosters as appropriate - Discussed weight loss techniques including increased physical activity, healthy diet. Encouraged patient to aim for a goal of 150 minutes of moderate-intensity exercise and 2 days of strength training. Educated them on the importance of starting small and building on their successes. - Discussed healthier eating habits including frequent meals which are carb/protein balanced. Discussed avoidance of simple carbohydrates, encouraged portion-controlled complex carbohydrates. - Recommended increasing water intake and avoiding sugary beverages, excess caffeine and alcohol intake - Follow up in 1 week for migraine or sooner with any questions, concerns. - Patient denies any concerns with her plan of care. People verbalizes understanding and agrees to plan of care. 05/02/2025 Methamphetamine use disorder, severe (ICD-10 - F15.20) 05/08/2025 Methamphetamine use disorder, severe (ICD-10 - F15.20) Daily methamphetamine use for 28 years. Patient recently completed detox at [facility]. Patient is motivated to stop using methamphetamines and has actively researched treatment options. No prior use of naltrexone or Vivitrol. - Discussed naltrexone as a treatment option for methamphetamine use disorder. - Offered both pill (naltrexone) and injectable (Vivitrol) forms. - Patient elected to start Vivitrol today. 05/08/2025 Methamphetamine use disorder, severe (ICD-10 - F15.20) 05/07/2025 Mood disorder (ICD-10 - F39) The differential diagnosis includes but is not limited to: Bipolar 1 vs. 2, CLARISSA appropriately due to patient's long history of MANJULA starting at age 11 Start Aripiprazole. Take as prescribed. Reviewed purpose (mood stability), benefits, and risks - low blood pressure, metabolic syndrome with high cholesterol or high blood sugars, change in cardiac conduction, nausea, vomiting, temporary or permanent movement disorders, and akathisia. For females: explained that no medication can be guaranteed to be 100% safe for baby or mother. Call for problems with medication, side effects or need for dosage change. Start Sertraline. Reviewed side effects which may include increased risk of suicide, anxiety, sleep disturbance, nausea, dry mouth, increased bruising, sexual dysfunction, reza, wt gain, and serotonin syndrome. For females: need to notify provider if planning or experiencing . Call for problems with medication, side effects or need for dosage change. 05/14/2025 Mood disorder (ICD-10 - F39) The differential diagnosis includes but is not limited to: Bipolar 1 vs. 2, CLARISSA appropriately due to patient's long history of MANJULA starting at age 11 05/02/2025 Substance abuse (ICD-10 - F19.10) 05/07/2025 PTSD (post-traumatic stress disorder) (ICD-10 - F43.10) Begin Prazosin - take as prescribed. Reviewed purpose (to reduce PTSD symptoms such a nightmares or flashbacks), benefits, and risks - including low blood pressure and serious interaction with medications used to treat erectile dysfunction. Omit taking if you are lightheaded or dizzy. If these symptoms persist, call our office. Call for problems with medication, side effects or need for dosage change. 05/13/2025 URI (upper respiratory infection) (ICD-10 - J06.9) Educated patient on symptomatic relief with using mucinex twice daily with food, tylenol/ibuprofen every 8 hours. Educated patient on using honey and salt water garggles for sore throat, hot showers for relief, and to come back if symptoms worsen. 05/06/2025 Migraine (ICD-10 - G43.909) 05/13/2025 Cough (ICD-10 - R05.9) 05/14/2025 PTSD (post-traumatic stress disorder) (ICD-10 - F43.10) 05/02/2025 COPD (chronic obstructive pulmonary disease) (ICD-10 - J44.9) 05/06/2025 Eczema of both hands (ICD-10 - L30.9) 05/13/2025 Maxillary sinusitis, unspecified chronicity (ICD-10 - J32.0) 05/07/2025 OCD (obsessive compulsive disorder) (ICD-10 - F42.9) 05/14/2025 OCD (obsessive compulsive disorder) (ICD-10 - F42.9) 05/06/2025 Breast cancer screening (ICD-10 - Z12.31) 05/07/2025 Insomnia (ICD-10 - G47.00) Begin trazodone. Reviewed purpose (help with sleep), benefits, and risks - including increased thoughts or suicidality, inducing reza, and/or male priapism. Call for problems with medication, side effects or need for dosage change. 05/02/2025 Nausea (ICD-10 - R11.0) 05/13/2025 Migraine (ICD-10 - G43.909) Come back in1 month for follow up on migraines. 05/06/2025 Colon cancer screening (ICD-10 - Z12.11) 05/02/2025 Constipation (ICD-10 - K59.00) 05/14/2025 Insomnia (ICD-10 - G47.00) 05/13/2025 Over weight (ICD-10 - E66.3) 05/02/2025 Eczema of both hands (ICD-10 - L30.9) 05/06/2025 Encounter for screening for lipoid disorders (ICD-10 - Z13.220) 05/02/2025 Migraine (ICD-10 - G43.909) 05/06/2025 Screening for thyroid disorder (ICD-10 - Z13.29) 05/06/2025 Diabetes mellitus screening (ICD-10 - Z13.1) 05/06/2025 Over weight (ICD-10 - E66.3) 05/06/2025 BMI 33.0-33.9,adult (ICD-10 - Z68.33) 05/06/2025 Neck pain on right side (ICD-10 - M54.2) 05/08/2025 Other 05/08/25 01:00 PM, Sarwat Louis RN > Per Carmelo Joseph APRN's orders, supervised as pt. self-administered Naltrexone 25mg po. Instructed pt. on Naltrexone and Vivitrol per [employer] module handout. Instructed pt. on adverse side [...] Naltrexone at this time. Reported this to aCrmelo Joseph APRN. Per pat, ji to administer IM Vivitrol. 05/08/25 01:45 PM, [...] Carmelo Joseph APRN pt. discharged back to [facility]. 05/02/2025 Other Continue treatment as recommended by [facility] staff. Encouraged patient to obtain routine medical care with patient's own primary care provider or establish as a patient at [facility] if no current primary care provider. 05/02/2025 Other Clinician met w [facility] client to assess needs for residential services. Clinician gathered information regarding historical presentation of mental health and substance use symptoms including withdrawal, HIV Risk assessment, psychiatric hospitalization history and presenting concern. Clinician conducted PHQ9 and CSSRS assessments as well as social drivers of health screening for the purposes of identifying additional service needs. 05/07/2025 Other May self-administer medications or be administered own oral medications per [facility] protocols. Provided informed consent with understanding of side effects, adverse effects, risks and benefits as well as alternative treatments as previously discussed and with the above recommended medications & other aspects of the treatment program. Agrees to return sooner if symptoms worsen or suicidal or homicidal ideations occur. Medication Hx: -Trazodone (300 mg) -Aripiprazole (worked well) Medication Plan: -Continue Hydroxyzine (standing order) -Start Prazosin 1 mg QHS -Start Sertraline 25 mg once daily -Start Trazodone 50 mg 1-2 tablets QHS PRN -Start Aripiprazole 5 mg once daily -Follow up: 1 week [] Hard Rx handed to patient [] Rx phoned into pharmacy [x] Rx faxed/e-prescribed into pharmacy [] PDMP Reviewed [] [facility] Reviewed Encouraged by Destinee Lin [facility]- to: [] consider utilizing therapist/counselor/s ocial worker/psychologist, referral given [x] continue with therapist/counselor/s ocial worker/psychologist Psychoeducation: -Treatment options discussed in detail with patient/guardian verbalizing understanding of treatment rationales. -Side effects and benefits of all medications prescribed discussed at length between psychiatric prescribing provider and patient/guardian along with the risks associated of [id number] interactions, including but not limited to prescription medications, OTC medications, vitamins, minerals and herbal supplements. -Patient/Guardian and provider dialogue showcased verbalized understanding from patient on rationales of medication risk vs benefits. -Information with neurobiology of presenting neurotransmitter disorder, mood stability, sleep hygiene and 7-8 hours of uninterrupted sleep per night with wakeful and refreshed awakening and day long alertness discussed. -Reduction of stress and anxiety to aid in focus and concentration discussed, again, with patient/guardian physically nodding, voicing understanding, and engaged in treatment plan with Destinee Lin [facility]-. -Perceiving complete understanding of rationale by patient/guardian and willingness to adhere to formulated plan of care by prescriber with patient/guardian buy-in, willingness to participate actively in plan of care and willing to take charge of own care. -Although geared for female patients, all patients/guardians are informed by prescribing provider of risks of medications that could potentially be taken by female/women within their [place] of influence and that women who use medicine during have a higher chance of having a baby with defects. -Patient/Guardian denies being and/or knowing of women who are at present and denies wanting to become in the foreseeable future, 0-6 months from now. -Patient/Guardian again informed of the risk of pharmaceutical medications consumed during and how there are potential negative effects on the developing fetus. -Patient/Guardian verbalizes understanding of rationale and physically nods head in agreement that if a should occur, to consult with provider, HAND TUFTER and/or Nurse Sales And Marketing Engineer to determine if prescribed medications should or should not be continued. -Instructions regarding both the medical/pharmacologic al and non-pharmacologic aspects of the treatments employed were given, and the patient/guardian seemed to understand this. Risks and benefits of treatment, and of non-treatment, were also discussed. The patient/guardian understands the more frequent side effects associated with the medications. -The use of psychotherapy was addressed today and will continue on an as needed basis for the foreseeable future. The choice is, of course, ultimately left to the patient/guardian. -Patient/Guardian was encouraged to make a follow-up appointment for the next visit. -Additional treatment was discussed and has been addressed on an ongoing basis within the context of this patient's illness, resources, progress, and other appropriate factors. Being compliant with a regular exercise routine, consistent medication use, ongoing psychotherapy, eating and sleeping well, as well as the importance of handling stress, was discussed. 05/14/2025 Other May self-administer medications or be administered own oral medications per [facility] protocols. Provided informed consent with understanding of side effects, adverse effects, risks and benefits as well as alternative treatments as previously discussed and with the above recommended medications & other aspects of the treatment program. Agrees to return sooner if symptoms worsen or suicidal or homicidal ideations occur. Unable to complete full AIMS due to nature of appt, denies any irregular muscle movements or facial tics; no irregular movements observed during Zoom appt. Medication Hx: -Trazodone (300 mg) -Aripiprazole (worked well) Medication Plan: -Continue Hydroxyzine (standing order) -Continue Prazosin 1 mg QHS -Continue Sertraline 25 mg once daily *started 05/07 -Increase Trazodone to 150 mg QHS PRN -Continue Aripiprazole 5 mg once daily -Follow up: 2 weeks [] Hard Rx handed to patient [] Rx phoned into pharmacy [x] Rx faxed/e-prescribed into pharmacy [] PDMP Reviewed [] [facility] Reviewed Encouraged by Destinee Lin [facility] to: [] consider utilizing therapist/counselor/s ocial worker/psychologist, referral given [x] continue with therapist/counselor/s ocial worker/psychologist Psychoeducation: -Treatment options discussed in detail with patient/guardian verbalizing understanding of treatment rationales. -Side effects and benefits of all medications prescribed discussed at length between psychiatric prescribing provider and patient/guardian along with the risks associated of [id number]-grvt interactions, including but not limited to prescription medications, OTC medications, vitamins, minerals and herbal supplements. -Patient/Guardian and provider dialogue showcased verbalized understanding from patient on rationales of medication risk vs benefits. -Information with neurobiology of presenting neurotransmitter disorder, mood stability, sleep hygiene and 7-8 hours of uninterrupted sleep per night with wakeful and refreshed awakening and day long alertness discussed. -Reduction of stress and anxiety to aid in focus and concentration discussed, again, with patient/guardian physically nodding, voicing understanding, and engaged in treatment plan with Destinee Lin [facility]. -Perceiving complete understanding of rationale by patient/guardian and willingness to adhere to formulated plan of care by prescriber with patient/guardian buy-in, willingness to participate actively in plan of care and willing to take charge of own care. -Although geared for female patients, all patients/guardians are informed by prescribing provider of risks of medications that could potentially be taken by female/women within their [place] of influence and that women who use medicine during have a higher chance of having a baby with defects. -Patient/Guardian denies being and/or knowing of women who are at present and denies wanting to become in the foreseeable future, 0-6 months from now. -Patient/Guardian again informed of the risk of pharmaceutical medications consumed during and how there are potential negative effects on the developing fetus. -Patient/Guardian verbalizes understanding of rationale and physically nods head in agreement that if a should occur, to consult with provider, HAND TUFTER and/or Nurse Sales And Marketing Engineer to determine if prescribed medications should or should not be continued. -Instructions regarding both the medical/pharmacologic al and non-pharmacologic aspects of the treatments employed were given, and the patient/guardian seemed to understand this. Risks and benefits of treatment, and of non-treatment, were also discussed. The patient/guardian understands the more frequent side effects associated with the medications. -The use of psychotherapy was addressed today and will continue on an as needed basis for the foreseeable future. The choice is, of course, ultimately left to the patient/guardian. -Patient/Guardian was encouraged to make a follow-up appointment for the next visit. -Additional treatment was discussed and has been addressed on an ongoing basis within the context of this patient's illness, resources, progress, and other appropriate factors. Being compliant with a regular exercise routine, consistent medication use, ongoing psychotherapy, eating and sleeping well, as well as the importance of handling stress, was discussed. Plan Of Treatment Future Test Test Name Order Date COLOGUARD 05/06/2025 Mammogram Breast - Bilateral Screening with ABUS, diagnostic mammogram/ultrasound, and/or biopsy as clinically indicated 05/06/2025 Next Appt Details Provider Name:Destinee Mayorga suzi, 05/28/2025 10:00:00 AM, [address] [place] [address], [id number], Insurance Providers Payer Name Payer Address Payer Phone Subscriber Number Group Number Insured Name Patient Relationship to Insured Coverage Start Date Coverage End Date [facility] [employer] [facility] [address] [place] [address] [id number] Nara Tierney Self - patient is the insured 5 [facility] [employer] [facility] [address] [place] [address] [id number] Nara Tierney Self - patient is the insured 5 Medications Administered Medication Instructions Date of Administration Dosage Diagnosis (ICD Code) Notes Vivitrol 05/08/2025 380 mg Trudy Louis 05/08/2025 01:45 PM SIDE DOOR MAN >Given IM Lt Gluteus, tolerated well. [facility]# [id number]. Medical (General) History Medical History History ICD Code PTSD anxiety depression Surgical History Surgery Date(Month/Year) hysterectomy at age 23 Hospitalization History Reason Date(Month/Year) Detox for substance use, [facility], end of last month 03/2025 [facility] detox 04/2025
--- OUTSIDE RECORDS SUMMARY | 2025-05-22 22:01 | XMS_ITS | Patient Health Record ---
Author Organization [facility] Address [address] [place] [address] Care Team Providers Care Cytology Technologist Name Role Phone Laine George Primary Care Provider [phone] Allergies Allergen (clinical drug ingredient) Drug/Non Drug Allergy documented on EMR Reaction Allergy Type Onset Date Status codeine Codeine anaphylaxis Drug Allergy Activ e ketorolac Ketorolac anaphylaxis Drug Allergy Activ e Reason For Referral No Information Medications Medication SIG (Take, Route, Frequency, Duration) Notes Start Date End Date Status Metoclopramide HCl 10 MG Tablet 1 tablet before meals Orally Twice a day; Duration: 30 days 11/08/2022 Active Mirtazapine 15 MG Tablet 1 tablet at bed time Orally Once a day; Duration: 30 days 11/04/2022 Active buPROPion HCl ER (XL) 150 MG Tablet Extended Release 24 Hour 1 tablet in the morning Orally Once a day; Duration: 30 days 11/04/2022 Active Albuterol Sulfate HFA 108 (90 Base) MCG/ACT Aerosol Solution 1 puff as needed Inhalation every 4 hrs Active hydrOXYzine Pamoate 25 MG Capsule 1 capsule up to three times a day as needed. Orally three times daily; Duration: 30 days 11/04/2022 Active SUMAtriptan Succinate 100 MG Tablet 1 tablet at least 2 hours between doses as needed Orally Twice a day; Duration: 30 days 11/08/2022 Active Topiramate ER 50 MG Capsule Extended Release 24 Hour 1 capsule Orally Twice a day; Duration: 30 days 11/04/2022 Active Social History Tobacco Use: Social History Observation Description Date Details (start date - stop date) Current Smoker NA - NA Social History Sexual History: Social Info Question Answer Notes Details of Sexual History Are you sexually active? Yes Are you having any sexual problems? No Have you had any sexually transmitted diseases ( STDs)? No Sexual Abuse History: none Sexual History Had sex in the past 12 months (vaginal, oral, or anal)? Yes with Men only Use protection? Yes How often? All of the time Prevention strategies discussed: Condoms Have you ever had a Sexually transmitted disease ? 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 Yes Communication needs (hearing , visual or cognitive): No Good ability to interact with other people: Yes Insecurities in? (list all that apply) None Reviewed/Updated 11/08/2022 Drugs/Alcohol: Social Info Question Answer Notes Alcohol Screen (Audit-C) Did you have a drink containing alcohol in the past year? Yes How often did you have a drink containing alcohol in the past year? 2 to 3 times a week (3 points) How many drinks did you have on a typical day when you were drinking in the past year? 7 to 9 drinks (3 points) How often did you have 6 or more drinks on one occasion in the past year? Weekly (3 points) Points 9 Interpretation Positive Drugs Have you used drugs other than those for medical reasons in the past 12 months? Yes Are you in a treatment program? Yes relapse prevention discussed? Yes Name of program: [facility] Type of program: Residential treatment Have ever injected drugs? No Are you still using? No Is there a minor (18 years or younger) at risk at home? No Methamphetamine? Yes Caffeine Intake: more than 4 cups per day Tobacco Use: Social Info Question Answer Notes Are you a second hand smoker? Are you a second hand smoker? No Tobacco Use/Smoking Are you a current smoker How often do you smoke cigarettes? every day How many cigarettes a day do you smoke? 6-10 Tobacco use other than smoking: Are you an other tobac co user? No Problems Problem Type SNOMED Code ICD Code Onset Dates Problem Status W/U Status Risk Notes Problem Anxiety disorder (930790803) Anxiety disorder, unspecified (F41.9) Active confirmed Problem Posttraumatic stress disorder (82214976) PTSD (post-traumatic stress disorder) (F43.10) Active confirmed Problem Insomnia (502955219) Insomnia, unspecified type (G47.00) Active confirmed Problem Methamphetamine dependence (473618280) Methamphetamine addiction (F15.20) Active confirmed Problem Migraine (62501186) Migraine without status migrainosus, not intractable, unspecified migraine type (G43.909) Active confirmed Problem Depression (799823718) Depression, unspecified (F32.A) Active confirmed Problem Obese class II (494591230972999) BMI 35.0-35.9,adult (Z68.35) Active confirmed Problem Obese class II (012869673831627) BMI 36.0-36.9,adult (Z68.36) Active confirmed Problem Alcohol withdraw al syndrome with complication (F10.939) Active confirmed Plan Of Treatment No Information Insurance Providers Payer Name Payer Address Payer Phone Subscriber Number Group Number Insured Name Patient Relationship to Insured Coverage Start Date Coverage End Date [facility] [address] [place] [address] [id number] Nara Tierney Self - patient is the insured [facility] [address] [address] [place] [address] [id number] Nara Tierney Self - patient is the insured Medical (General) History Medical History History ICD Code COPD Depression and Anxiety Panic attacks Migrain headaches Surgical History Surgery Date(Month/Year) Hysterectomy 1999 Appendectomy 1985 Hospitalization History Reason Date(Month/Year) Hysterectomy 1999 Appendectomy 1985
--- OUTSIDE RECORDS SUMMARY | 2025-05-22 22:01 | XMS_ITS | Clinical Summary ---
Author Organization [facility] Address [address] [place] [address] Care Team Providers Care Head Banquet Waitress Name Role Phone Gonsalo Alonso MD Primary Care Provider Allergies Active Allergy Reactions Criticality Noted Date Comments Codeine Hives Medium 03/16/2022 Ketorolac Stomach upset Low 03/16/2022 Cramping of stomach Medications triamcinolone (KENALOG) 0.1 % ointmentIndicat ions:skin rash Apply topically 2 (two) times a day as needed for irritation or rash 80 g 2 Active sertraline (ZOLOFT) 50 mg tabletIndicatio ns:SHAWNEE (generalized anxiety disorder) Take 1 tablet (50 mg total) by mouth daily 90 tablet 2 Active albuterol HFA (PROVENTIL HFA,VENTOLIN HFA,PROAIR HFA) 90 mcg/actuation inhaler Inhale 2 puffs every 4 (four) hours as needed for wheezing 1 each 4 Active bacitracin-neom ycin-polymyxin B (NEOSPORIN) ointmentIndicat ions:Minor Bacterial Skin Infections Apply topically 3 (three) times a day 15 g 4 Active doxycycline (VIBRAMYCIN) 100 mg capsule Take 1 tablet/capsule (100 mg total) by mouth 2 (two) times a day 20 capsule 4 Active HYDROcodone-tricia taminophen (NORCO) 5-325 mg per tabletIndicatio ns:Pain Take 1 tablet by mouth every 6 (six) hours as needed for pain 15 tablet 5 Active Active Problems Problem Noted Date Diagnosed Date Laceration of left index fin nelida without foreign body without damage to nail 11/30/2023 Family history of cardiovascular disease 022 Assessment & Plan (03/16/2022 10:41 AM CDT): - had heart attacks in late 50s - both mother and father - check lipid panel, A1c - recommend tobacco smoking cessation Dyshidrotic eczema 03/16/2022 Assessment & Plan (03/16/2022 10:42 AM CDT): - chronic, uncontrolled - tried OTC products wthout success - start Triamcinolone ointment - script sent in - F/u in 1 month SHAWNEE (generalized anxiety disorder) 03/16/2022 Assessment & Plan (03/16/2022 11:37 AM CDT): - chronic, uncontrolled - has anxiety, to less extent depression - has coexisting polysubstance use disorder - tobacco, alcohol, meth, THC - used to be on medications - Zoloft, Buspar - been off medications for many years - start Zoloft 50 mg daily and increase to 100 mg in 1 month - check TSH and other labs 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 - chronic condition, not at goal - BMI Follow-up includes: nutrition counseling, exercise counseling and education S/P total hysterectomy 03/16/2022 Overview (03/16/2022): - due to endometriosis, done in early 20s - she was put on hormone replacement afterwards but affected her emotions so stopped the medication S/P appendectomy 03/16/2022 Personal history of tobacco use 03/16/2022 Assessment & Plan (03/16/2022 10:40 AM CDT): Social History Tobacco Use Smoking Status Every Day Packs/day: 0.75 Years: 35.00 Pack years: 26.25 Types: Cigarettes Start date: 1985 Smokeless Tobacco Not on file - chronic condition, not at goal - assessed patient readiness for tobacco smoking cessation - discussed the importance of tobacco smoking cessation with goal of being tobacco free Preventative health care 03/16/2022 Alcohol use disorder, moderate, dependence 03/16 Assessment & Plan (03/16/2022 11:35 AM CDT): - chronic, not at goal - stated daily 3-4 cocktail consumption - will discuss more - recommend tapering down and abstaining from alcohol use - will check labs, order placed No results found for: ALT, AST, GGT, ALKPHOS, BILITOT No results found for: VITB12 No results found for: FOLATE Polysubstance use disorder 03/16/2022 Assessment & Plan (03/16/2022 11:36 AM CDT): - chronic, not at goal - Uses - tobacco, THC, Meth, Alcohol - has mental health - anxiety, depression, history of abuse - will discuss more about each in future visits Recurrent major depressive disorder, in partial remission 03/16/2022 Assessment & Plan (03/16/2022 11:37 AM CDT): - chronic, uncontrolled - has anxiety, to less extent depression - has coexisting polysubstance use disorder - tobacco, alcohol, meth, THC - used to be on medications - Zoloft, Buspar - been off medications for many years - start Zoloft 50 mg daily and increase to 100 mg in 1 month - check TSH and other labs Immunizations Immunization Administration Dates Next Due DTP 01/16/1981, 8,04/01/1977,01/19/1976, 6 Influenza, Unspecified 03/14/2022(Deferr ed: Patient Refused),07/28/2021(Deferred: Patient Refused) MMR 09/13/1991,10/04/1978 OPV 09/27/1989, 1,09/27/1977,04/01/1977, 6 Td, adsorbed 09/27/1989 Tdap 04/02/2023,01/31/2014 Surgical History Surgery Date Site/Laterality Comments HYSTERECTOMY APPENDECTOMY 05/29/1987 - 05/28/1988 Medical History Medical History Date Comments Depression Anxiety Family History Medical History Relation Name Comments Heart attack Father Heart attack Mother Relation Name Status Comments Father Mother Social History Tobacco Use Types Packs/Day Years Used Date Smoking Tobacco: Every Day Cigarettes 0.8 40 Started: 1985 Tobacco Cessation:Ready to Q uit: Not Asked; Counseling Given: Not Answered PHQ-2 Answer Date Recorded PHQ-2 Total Score (If total score is 3 or more points, staff should administer the PHQ-9) 0 03/16/2022 Personal Safety Answer Date Recorded Have you ever been in or are you currently in a harmful physical or emotional relationship or is someone making you feel afraid or unsafe? Denies 06/15/2024 Comments No Sex and Gender Information Value Date Recorded Sex Assigned at Not on file Legal Sex Female 8:00 AM CDT Gender Identity Not on file Sexual Orientation Not on file Last Filed Vital Signs Vital Sign Reading Time Taken Comments Blood Pressure 98/57 06/15/2024 7:05 PM LIVESTOCK SHOWMAN Pulse 90 06/15/2024 7:13 PM LIVESTOCK SHOWMAN Temperature 36.3 C (97.4 F) 06/15/2024 5:08 PM LIVESTOCK SHOWMAN Respiratory Rate 16 06/15/2024 5:08 PM LIVESTOCK SHOWMAN Oxygen Saturation 97% 06/15/2024 7:13 PM LIVESTOCK SHOWMAN Inhaled Oxygen Concentration - - Weight 99.8 kg (220 lb) 06/15/2024 5:08 PM LIVESTOCK SHOWMAN Height 172.7 cm (5' 8) 06/15/2024 5:08 PM LIVESTOCK SHOWMAN Body Mass Index 33.45 06/15/2024 5:08 PM LIVESTOCK SHOWMAN Plan of Treatment Health Maintenance Due Date Last Done Comments Breast Cancer Screening-Mammogram 1975 Colon Cancer Screening-Colonoscopy 1975 Hepatitis C Screening 1975 Hepatitis B Screening 09/08/1993 Pneumococcal vaccine <65 (1 of 2 - PCV) 09/08/1994 Depression Screening 03/16/2023 03/16/2022 Regular Well Visit/Exam 18-64 03/16/2023 03/16/2022 Influenza Vaccine (#1) 2025 DTaP/Tdap/Td Vaccine (8 - Td or Tdap) 04/02/2033 04/02/2023, 01/31/2014, 09/27/1989, Additional history exists Insurance [employer] [facility] [facility] Member Subscriber Plan / Payer (Ef fective 2020-Present) Name:Nara Tierney Relation to Subscriber:Self Name:Nara Tierney Payer ID:[id number] (NAIC) Group ID:[id number] Type:MEDICAID RISK OTHER Address: [facility] [id number] [place] [phone] [employer] [facility] Member Subscriber Plan / Payer (Ef fective 2020-Present) Name:Nara Tierney Relation to Subscriber:Self Name:Nara Tierney Payer ID:[id number] (NAIC) Group ID:[id number] Type:MEDICAID RISK OTHER Address: [facility] [id number] [place] [phone] Care Teams Head Banquet Waitress Relationship Specialty Start Date End Date Gonsalo Alonso MD PCP - General Family Medicine 03/16/22
--- OUTSIDE RECORDS SUMMARY | 2025-05-22 22:01 | XMS_ITS | Clinical Summary ---
Author Organization [facility] Address [address] [place] [address] Care Team Providers Care Apartment Maintenance Supervisor Name Role Phone Unavailable Primary Care Provider Unavailabl e Source Comments [facility],non-owned Affiliates and Associated Physician Practices is amultiple site organization consisting of ambulatory clinics and hospital sitesin [place], [place], [place] and [place]. This disclosure is being madepursuant to the Care Everywhere program and may not contain all information available regarding this patient. Last updated 18.[facility] Allergies Active Allergy Reactions Criticality Noted Date Comments Prednisone Psychiatric Medium 08/16/2017 Ketorolac Nausea and/or Vomiting Medium 08/16/2017 Medications * Be aware that medications may not be up to date on this document. Alwaysverify current medications with the patient. albuterol HFA (VENTOLIN HFA) 108 (90 BASE) MCG/ACT inhaler Inhale 2 puffs by mouth every 6 hours as needed 1 Inhaler 08/16/2017 Active Social History Tobacco Use Types Packs/Day Years Used Date Smoking Tobacco: Every Day Comments Unknown Sex and Gender Information Value Date Recorded Sex Assigned at Not on file Legal Sex Female 11:24 AM CDT Gender Identity Not on file Sexual Orientation Not on file Last Filed Vital Signs Vital Sign Reading Time Taken Comments Blood Pressure 114/78 08/16/2017 11:35 AM CDT Pulse 94 08/16/2017 11:35 AM CDT Temperature 36.4 C (97.5 F) 08/16/2017 11:35 AM CDT Respiratory Rate - - Oxygen Saturation - - Inhaled Oxygen Concentration - - Weight 81.6 kg (180 lb) 08/16/2017 11:35 AM CDT Height 172.7 cm (5' 8) 08/16/2017 11:35 AM CDT Body Mass Index 27.37 08/16/2017 11:35 AM CDT Plan of Treatment Health Maintenance Due Date Last Done Comments COLOGUARD (AGES 45-75) - COL ON CA SCREENING 1975 COLON MONITORING 1975 COLONOSCOPY - COLON CA SCREENING 1975 CT COLONOGRAPHY - COLON CA SCREENING 1975 Colorectal Cancer Screening 1975 FIT - COLON CA SCREENING 1975 FLEX SIG - COLON CA SCREENING 1975 LIPID TESTING 1975 MAMMOGRAM 1975 HIV SCREENING 09/08/1990 HEPATITIS C SCREENING 09/04/1993 DTAP/TDAP/TD VACCINES (1 - Tdap) 09/08/1994 HEPATITIS B VACCINE (1 of 3 - 19+ 3-dose series) 09/08/1994 SCREENING FOR DIABETES 08/16/2017 DEPRESSION SCREENING 05/29/2024 COVID-19 VACCINE (1 - 2024-2 6 season) 2025 INFLUENZA VACCINE (#1) 2025 ZOSTER VACCINE (1 of 2) 09/08/2025 HIB VACCINE Aged Out No longer eligi ble based on patient's age to complete this topic HPV VACCINE Aged Out No longer eligi ble based on patient's age to complete this topic MENINGOCOCCAL (Group B) VACC INE SHARED DECISION-MAKING Aged Out No longer eligibl e based on patient's age to complete this topic MENINGOCOCCAL GROUPS A/C/Y/W VACCINE Aged Out No longer eligible b ased on patient's age to complete this topic Insurance MEDICAID - [place]
[2025-05-22 22:28] VITALS: BP 110/88; PULSE 73; RESP 24; O2SAT 96
== END 2025-05-22 22:30 | disposition home or self-care (01) ==
LOC: ANHED 21:59
PROVIDERS: PCP Nurse Practitioner
DX: R10.11 Right upper quadrant pain (principal)
CPT/HCPCS: 36415; 74177; 80053; 81001; 83690; 85025; 85610; 85730; 99284; A9270; Q9967